=== PATIENT | male | born 2000 | race Native Hawaiian/Other Pacific Islander ===

== ENCOUNTER → 2021-01-27 | Outpatient (CLI) | payer OTHER ==
--- NOTE | 2021-01-27 10:53 | MR ---
EXAMINATION TYPE: MR lumbar spine wo con DATE OF EXAM: 01/27/2021 COMPARISON: NONE HISTORY: Chronic LBP, RLE radiculopathy x 4 mos, no trauma. TECHNIQUE: T1 and T2 axial and sagittal images of the lumbar spine are submitted. FINDINGS: There is no abnormal signal seen within the visualized spinal cord or paraspinal soft tissu es. Artifact in the sagittal images is noted involving the distal spinal cord conus on the sagittal image s only. At L1-2 there is no degenerative disc disease, disc herniation, canal stenosis, or foraminal encroach ment. At L2-3 there is no degenerative disc disease, disc herniation, canal stenosis, or foraminal encroach ment At L3-4 there is no degenerative disc disease, disc herniation, canal stenosis, or foraminal encroach ment At L4-5 there is broad-based right paracentral disc herniation with significant compression of thecal sac and narrowing the right neural foramina. Disc herniation results in canal stenosis. At L5-S1 there is central disc small protrusion with mild effacement of thecal sac. Mild hypertrophic change of the facets. 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 IMPRESSION: 1. Broad-based right paracentral disc herniation and moderate effacement of thecal sac and narrowing the right neural foramina L4-L5. Results in canal stenosis. 2. Central disc protrusion L5-S1 with mild effacement of thecal sac. Neural foramina patent.
== END | disposition home or self-care (01) ==
LOC: RADMRIMAIN 09:50
PROVIDERS: ATTEND Internal Medicine
DX: M48.061 Spinal stenosis, lumbar region without neurogenic claudication (principal); M51.17 Intervertebral disc disorders with radiculopathy, lumbosacral region; M99.73 Connective tissue and disc stenosis of intervertebral foramina of lumbar region
CPT/HCPCS: 72148